=== PATIENT | female | born 1950 | race Caucasian/White ===

== ENCOUNTER 2023-10-03 10:35 | Outpatient (CLI) | payer MEDICARE ==
--- NOTE | 2023-10-09 10:36 | Mammography Report ---
BILATERAL DIGITAL SCREENING MAMMOGRAM 3D/2D WITH EXAGGERATED CC: 10/03/2023 CLINICAL: Routine screening. Compared to 07/02/2014 There are scattered areas of fibroglandular density in both breasts (category b / 25%-50% glandular t issue). No significant masses, calcifications, or other findings are seen in either breast. IMPRESSION: NEGATIVE There is no mammographic evidence of malignancy. A 1 year screening mammogram is recommended. Based on the Tyrer Cuzick model (a risk assessment model) the patient's lifetime risk is 3.1% and her 10 year risk is 2.1%. According to the ACR, ACS, and NCCN guidelines, an annual breast MRI exam jj g with mammogram is recommended if the patient's lifetime risk is 20% or greater. This exam was interpreted at Station ID: [id number]. NOTE: For mammograms, a report in lay terms will be sent to the patient. Approximately 15% of breast malignancies will not be visualized mammographically. In the management of a palpable breast mass, a negative mammogram must not discourage biopsy of a clinically suspicious lesion. Electronically Signed By: Yuan Gambino M.D. lc/:10/09/2023 09:22:38 letter sent: No_Letter ACR BI-RADS Category 1: Negative 3341F PARENCHYMAL PATTERN: (A) - The breast(s) demonstrate(s) scattered fibroglandular densities. BI-RADS CATEGORY: (1) - 1 RECOMMENDATION: (ANNUAL) - Recommend routine annual screening mammography. [id number] 1 year screening LATERALITY: (B)
== END 2023-10-03 10:36 | disposition home or self-care (01) ==
LOC: DI.S 10:35
PROVIDERS: ATTEND Nurse Practitioner Family
DX: Z12.31 Encounter for screening mammogram for malignant neoplasm of breast (principal); R92.323 Mammographic fibroglandular density, bilateral breasts

== ENCOUNTER 2023-10-28 15:24 | Outpatient (CLI) | payer MEDICARE | END 2023-10-28 23:59 | disposition critical access hospital (66) | LOC: EMS 15:24 | DX: R42 Dizziness and giddiness (principal); R11.2 Nausea with vomiting, unspecified | CPT/HCPCS: A0425; A0427 ==

== ENCOUNTER 2023-10-28 15:49 | Emergency (ER) | payer MEDICARE ==
--- NOTE | 2023-10-28 15:56 | ED Physician Documentation ---
PD HPI FOCAL NEURO - Stated complaint Stated Complaint: DIZZY/VOMITING - History obtained from History obtained from: Patient, EMS - Additional information Additional information: Sudden onset vertigo about 2 hours ago associate with vomiting. No associated headache and no history of vertigo in the past. History somewhat limited on initial evaluation as she is so miserable with the vertigo that she is hesitant to cooperate with history/exam. She has received 4 mg of Zofran and some IV fluids on arrival from EMS. PD PAST MEDICAL HISTORY - Present Medications Home Medications: Ambulatory Orders Medication Instructions Recorded Confirmed Meclizine HCl 25 mg PO QID PRN #20 tab 10/28/23 Metoclopramide [Reglan] 10 mg PO Q6H PRN #20 tablet 10/28/23 - Allergies Allergies/Adverse Reactions: Allergies Allergy/AdvReac Type Severity Reaction Status Date / Time No Known Drug Allergies Allergy Verified 10/28/23 16:08 PD ED PE NORMAL - Vitals Vital signs reviewed: Yes - General General: Alert and oriented X 3, No acute distress - HEENT HEENT: PERRL, EOMI, Other (nystagmus on right gaze) - Neck Neck: Supple, no meningeal sign, No bony TTP - Cardiac Cardiac: RRR, No murmur - Respiratory Respiratory: No respiratory distress, Clear bilaterally - Abdomen Abdomen: Non tender - Back Back: No CVA TTP, No spinal TTP - Derm Derm: Normal color, Warm and dry - Neuro Neuro: Alert and oriented X 3, 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, No motor deficit, No sensory deficit, Normal speech Eye Opening: To Voice Motor: Obeys Commands Verbal: Oriented GCS Score: 14 - Psych Psych: Normal mood, Normal affect Results - Vitals Vitals: Vital Signs - 24 hr 10/28/23 10/28/23 15:57 16:06 Temperature 36.1 C L Heart Rate 67 52 L Respiratory 17 Rate Blood Pressure 155/111 H 156/97 H O2 Saturation 96 100 Oxygen O2 Source Room air - Labs Labs: Laboratory Tests 10/28/23 10/28/23 16:05 16:05 WBC 7.1 RBC 4.82 Hgb 14.2 Hct 42.2 MCV 87.6 MCH 29.5 MCHC 33.6 RDW 13.5 Plt Count 220 MPV 10.7 Neut # (Auto) 4.0 Lymph # (Auto) 2.4 [place] # (Auto) 0.5 Eos # (Auto) 0.1 Baso # (Auto) 0.1 Absolute Nucleated RBC 0.00 Nucleated RBC % 0.0 Sodium 140 Potassium 3.6 Chloride 103 Carbon Dioxide 27 Anion Gap 10.0 BUN 16 Creatinine 0.8 Estimated GFR (MDRD) 71 L Glucose 119 H Calcium 10.7 H Total Bilirubin 0.6 AST 14 ALT 12 Alkaline Phosphatase 40 L Total Protein 6.8 Albumin 4.4 Globulin 2.4 Albumin/Globulin Ratio 1.8 - Rads (name of study) MRI brain - negative Relevant Findings:: Final report received, EMP independent interpretation of test PD Medical Decision Making - ED course ED course: 72-year-old woman with acute onset severe vertigo with vomiting. She was miserable on arrival I could not complete reasonable neurologic exam to look for a central cause. She was medicated with meclizine and Reglan and went over an MRI which was subsequently negative. On return from MRI I reexamined her she was much more comfortable, she was no longer dizzy nor nauseous. In the interim a CBC and CMP were generally unremarkable. Her who is a artillery meteorological man was at the bedside I walked him through the Carmen maneuver should she become symptomatic again although at this point she is no longer symptomatic. Departure - Departure Disposition: 01 Home, Self Care Clinical Impression: Peripheral vertigo involving right ear Condition: Good Record reviewed to determine appropriate education?: Yes Instructions: ED BPV Vertigo Prescriptions: Meclizine HCl 25 mg PO QID PRN #20 tab PRN Reason: Vertigo Metoclopramide [Reglan] 10 mg PO Q6H PRN #20 tablet PRN Reason: nausea or headache Comments: You are seen today for an attack of peripheral vertigo likely with the right ear balance apparatus being the cause. Your MRI was normal without evidence of stroke. If you become symptomatic again I sent prescriptions electronically to [facility] in [place] and you can also do the Carmen maneuver that we talked about. Call your doctor to arrange a follow-up appointment, make the next available appointment. In the interim, return anytime if worse or if new symptoms develop.
[2023-10-28 16:09] LABS: BASOPHILS # (AUTO) 0.1 10^3/uL (0.0-0.1); BASOPHILS % (AUTO) 0.7 %; EOSINOPHILS # (AUTO) 0.1 10^3/uL (0.0-0.7); HCT - HEMATOCRIT 42.2 % (37.0-47.0); HGB - HEMOGLOBIN 14.2 g/dL (12.0-16.0); LYMPHOCYTES # (AUTO) 2.4 10^3/uL (1.5-3.5); LYMPHOCYTES % (AUTO) 33.7 %; MEAN CORPUSCULAR HEMOGLOBIN 29.5 pg (27.0-31.0); MEAN CORPUSCULAR HGB CONC 33.6 g/dL (32.0-36.0); MEAN CORPUSCULAR VOLUME 87.6 fL (81.0-99.0); MEAN PLATELET VOLUME 10.7 fL (7.9-10.8); MONOCYTES # (AUTO) 0.5 10^3/uL (0.0-1.0); MONOCYTES % (AUTO) 7.1 %; NEUTROPHILS % (AUTO) 57.2 %; PLT - PLATELET COUNT 220 10^3/uL (130-450); RED BLOOD COUNT 4.82 10^6/uL (4.20-5.40); RED CELL DISTRIBUTION WIDTH 13.5 % (12.0-15.0); WHITE BLOOD COUNT 7.1 x10^3/uL (4.8-10.8)
[2023-10-28 16:18] LABS: ALBUMIN 4.4 g/dL (3.2-5.5); BILIRUBIN,TOTAL 0.6 mg/dL (0.2-1.0); CALCIUM 10.7 mg/dL (8.5-10.3); POTASSIUM 3.6 mmol/L (3.5-4.5)
[2023-10-28 16:23] VITALS: BP 156/97; O2SAT 100
[2023-10-28 16:23] LABS: ALBUMIN/GLOBULIN RATIO 1.8 (1.0-2.2); CREATININE 0.8 mg/dL (0.6-1.3); TOTAL PROTEIN 6.8 g/dL (6.4-8.9)
[2023-10-28] MEDS: METOCLOPRAMIDE 10 MG/2 ML VIAL IVP STA (16:23)
[2023-10-28] MEDS: MECLIZINE 12.5 MG TABLET PO STA (16:25)
--- NOTE | 2023-10-28 17:38 | MRI Report ---
PROCEDURE: Brain WO INDICATIONS: vertigo TECHNIQUE: Noncontrast axial T1 spin echo, axial T2 fast spin echo, sagittal and axial FLAIR, coronal T2 fast sp in echo, axial gradient echo, axial diffusion and ADC through the brain. COMPARISON: None. FINDINGS: Image quality: Excellent. CSF Spaces: Basal cisterns are patent. No extra-axial fluid collections. Ventricles are normal in size and shape. Brain: No intracranial masses or hemorrhage. Baron/white matter interface is normal. Brainstem appe ars normal. Diffusion-weighted images demonstrate no acute ischemic insult. No chronic ischemic ins ults. Normal intravascular flow voids are present. Age-appropriate brain parenchymal volume loss an d chronic small vessel ischemic change can be seen. Prominent perivascular spaces are incidentally n oted. In this patient with this given history, scrutiny is given to the cerebellopontine angle cisterns and to the internal auditory canals. To the limits of this standard protocol study, no masses can be see n within these regions. Skull and face: Calvarium has normal marrow signal. Orbits appear normal. Sinuses: Sinuses and mastoids are clear. IMPRESSION: No imaging explanation is found for the patient's presenting symptoms. To the limits of this noncontrast study, no findings of masses or mass effect can be seen. No findings of acute or subacute infarction are seen. No prior territorial infarction can be seen. Reviewed by: Paul Palmer MD on 10/28/2023 4:37 PM MARY JO Approved by: Paul Palmer MD on 10/28/2023 4:37 PM MARY JO Station ID: [id number]
== END 2023-10-28 18:08 | disposition home or self-care (01) ==
LOC: EDUNIT# → ED 15:49
DX: H81.391 Other peripheral vertigo, right ear (principal)
CPT/HCPCS: 36415; 70551; 80053; 85025; 96374; 99284; A9270; J2765